=== PATIENT | female | born 1980 | race Caucasian/White ===

== ENCOUNTER → 2020-03-15 | Outpatient (CLI) | payer BC ==
--- NOTE | 2020-03-15 14:47 | MM ---
Reason for exam: screening (asymptomatic). Baseline mammogram. History: Took hormonal contraceptives for 9 years beginning at age 16. Physical Findings: Nurse did not find any significant physical abnormalities on exam. MG 3D Screening Mammo W/Cad Bilateral CC and MLO view(s) were taken. The breast tissue is extremely dense which could obscure a lesion on mammography. Finding: There are indeterminate grouped/clustered calcifications in the upper outer quadrant, anterior middle position of the right breast. These results were verbally communicated with the patient and result sheet given to the patient on 03/15/20. ASSESSMENT: Incomplete: need additional imaging evaluation, BI-RAD 0 RECOMMENDATION: Special view mammogram of the right breast.
--- NOTE | 2020-03-15 14:50 | MM ---
Reason for exam: additional evaluation requested from abnormal screening. History: Took hormonal contraceptives for 9 years beginning at age 16. Physical Findings: Breast exam preformed at baseline screening. MG Work Up Mamm w CAD RT CC with magnification, LM with magnification, and LM view(s) were taken of the right breast. The breast tissue is heterogeneously dense. This may lower the sensitivity of mammography. Finding: There are intermediate concern, suspicious coarse heterogeneous, grouped/clustered calcifications in the anterior, central position of the right breast, do not layer on lateral view. These results were verbally communicated with the patient and result sheet given to the patient on 03/15/20. ASSESSMENT: Suspicious, BI-RAD 4 RECOMMENDATION: Stereotactic core biopsy of the right breast. Called Dr. Reyes's office with mammographic findings and has scheduled an appointment for the patient for 03/17/20 at 9:[address] Mott. Biopsy scheduled for 04/01/20 at 8:00. PRELIMINARY REPORT CALLED AND FAXED TO DR. MOTT ON 03/15/20.
== END | disposition home or self-care (01) ==
LOC: RADMAMWWP 12:35
PROVIDERS: ATTEND Family Medicine
DX: Z12.31 Encounter for screening mammogram for malignant neoplasm of breast (principal); R92.8 Other abnormal and inconclusive findings on diagnostic imaging of breast
CPT/HCPCS: 77063; 77065; 77067

== ENCOUNTER → 2020-03-17 | Outpatient (CLI) | payer BC ==
[2020-03-17 10:06] VITALS: BP 124/84; PULSE 74; RESP 18; TEMP 98
--- NOTE | 2020-03-17 10:24 | P.GSHP ---
History of Present Illness H&P Date: 03/17/20 Chief Complaint: abnormal right breast mammogram Verena is a 39-year-old white female who was seen in consultation for Dr. Rosenda Reyes regarding a mammographic abnormality in her right breast. She had her first [place] [id number] which revealed some calcifications of concern in the right breast after which a diagnostic mammogram was performed the calcifications were persistent in the stereotactic core biopsy was recommended. She does not feel any masses lumps or nodules in her breast. She does not complain of any pain in the breast. She is not complaining of any abnormal nipple discharge. She has no history of any recent trauma or infection in the breast. Caffeine: 2 cups of tea/day, stopped drinking coffee 6 months ago Nicotine: Stopped smoking 3 years ago used to smoke a pack a day for 3 years, she is not exposed to secondhand smoke Theophylline: Occasionally Hormones: None Family history: paternal aunt: ovarian cancer Hormonal history: Menarche: 8 , breast fed: yes, age at 25 periods regular, started 1 week ago BCP: 9 years, than IUD and a then a tubal hormones: none Surgical history: 1. Tubal ligation 2. D&C Medical history: none Social history: Smoke: Negative Alcohol: Negative Drugs: Negative - Constitutional Constitutional: Denies chills, Denies fever - EENT Eyes: denies blurred vision, denies pain Ears: deny: decreased hearing, tinnitus Ears, nose, mouth and throat: Denies headache, Denies sore throat - Breasts Breasts: bilateral: as per HPI - Cardiovascular Cardiovascular: Denies chest pain, Denies shortness of breath - Respiratory Respiratory: Denies cough, Denies 7 - Gastrointestinal Gastrointestinal: Denies abdominal pain, Denies diarrhea, Denies nausea, Denies vomiting - Genitourinary (Female) Genitourinary: Denies dysuria, Denies hematuria - Menstruation Menstruation: Reports period normal - Musculoskeletal Musculoskeletal: Denies myalgias - Integumentary Integumentary: Denies pruritus, Denies rash - Neurological Neurological: Denies numbness, Denies weakness - Psychiatric Psychiatric: Denies anxiety, Denies depression - Endocrine Endocrine: Denies fatigue, Denies weight change - Hematologic/Lymphatic Comment: none - Allergic/Immunologic Allergic/Immunologic: Reports seasonal allergies Past Medical History History of Any Multi-Drug Resistant Organisms: None Reported Smoking Status: Former smoker Medications and Allergies Home Medications Medication Instructions Recorded Confirmed Type Ascorbic Acid [Vitamin C] 500 mg PO DAILY 03/17/20 03/17/20 History Biotin 5,000 mcg PO DAILY 03/17/20 03/17/20 History Multivit with Calcium,Iron,Min 1 tab PO DAILY 03/17/20 03/17/20 History [Women's Multivitamin] Allergies Allergy/AdvReac Type Severity Reaction Status Date / Time No Known Allergies Allergy Unverified 03/17/20 10:01 Surgical - Exam Vital Signs Temp Pulse Resp BP Pulse Ox 98.0 F 74 18 124/84 98 03/17/20 10:03 03/17/20 10:03 03/17/20 10:03 03/17/20 10:03 03/17/20 10:03 BMI 26.8 - General well developed, well nourished, no distress - Eyes normal ocular movement - ENT no hearing loss, no congestion - Neck no masses, trachea midline - Respiratory normal respiratory effort, clear to auscultation - Cardiovascular Rhythm: regular Heart Sounds: normal: S1, S2 - Abdomen Abdomen: soft, non tender, no guarding, no rigid, no rebound - Integumentary normal turgor - Neurologic no disoriented, no combative - Musculoskeletal normal gait, normal posture - Psychiatric oriented to time, oriented to person, oriented to place, speech is normal, memory intact breast: BRA 36B inspection: Questionable prominent glands and the areolar bilaterally greater on the right than the left, ptosis grade 2 bilateral Palpation: Right breast: Dense fibroglandular tissue no dominant masses or nodules of concern fibrocystic changes Right axilla: No adenopathy of concern Left breast: Multiple positional exam dense fibroglandular tissue no dominant masses or nodules of concern Left axilla: No adenopathy of concern Results Mammogram results reviewed Assessment and Plan Assessment: Impression: 1. Abnormal right breast mammogram 2. Dense fibrocystic breast tissue bilaterally 3. Skin changes bilateral areolar 4. Family history ovarian cancer Plan: 1. Stereotactic core biopsy right breast abnormality 2. Patient has appointment with dermatology to evaluate the areolar skin changes Of stereotactic core biopsy procedure was discussed with the patient. Risk and benefits were discussed. Alternative options such as watchful waiting or resection in the operating room were discussed but not recommended. The patient understands and wishes to proceed. This is scheduled for the near future. Cc: Dr. Reyes, DR. De Luna encounter 40 minutes, > 50% of time spent in planning and counselling
== END | disposition home or self-care (01) ==
LOC: WWCWWP 09:55
PROVIDERS: ATTEND Surgery
DX: Z53.9 Procedure and treatment not carried out, unspecified reason (principal)

== ENCOUNTER → 2020-04-07 | Day surgery (SDC) | payer BC ==
[2020-04-07 07:19] VITALS: RESP 16
--- NOTE | 2020-04-07 08:38 | P.PCN ---
Date of Procedure: 04/07/20 Preoperative Diagnosis: Microcalcifications of concern right breast Postoperative Diagnosis: Same Procedure(s) Performed: Stereotactic core biopsy right breast Anesthesia: local Surgeon: Angelica Mott Pathology: other (breast tissue) Disposition: same day Indications for Procedure: Heterogeneous group/clustered calcifications anterior to central position of the right breast Operative Findings: Calcifications noted in specimen Description of Procedure: The patient is a 39-year-old white female who on a baseline screening mammogram was noted to have an area of microcalcifications of concern in the anterior central position of the right breast. They did not layer on the lateral view. Risks and benefits of stereotactic core biopsy were discussed with the patient and it was recommended she undergo a sterile tactic core biopsy. She understood and wished to proceed. The patient was taken to the stereotactic core biopsy room and positioned on the lo-rad table. Generation Engineer film was obtained in the area of concern was identified. A lateral to medial approach was utilized. The area of concern was targeted. The breast was prepped using Betadine. 20 mL of 1% lidocaine was used to anesthetize the area of concern. An 18-gauge vacuum-assisted core rotating biopsy needle was driven to the correct coordinates. The needle was fired. Post fire films revealed the needle be in the correct location. 12 core biopsies were obtained. The area was lavaged until the return was clear. The specimen was radiographed and the calcifications of concern were identified in the specimen. A secure aldo marker was placed. The patient tolerated the procedure in stable condition. The specimen was sent to pathology. The patient will follow with Dr. Olsen next week.
[2020-04-07 10:32] VITALS: BP 130/74; PULSE 64; TEMP 97.9
--- NOTE | 2020-04-07 13:53 | MM ---
Stereotactic Mammotome core biopsy right breast. HISTORY: Microcalcifications The Microcalcifications in question within the right breast were targeted by the undersigned. Proced ure was performed by the undersigned. Informed consent was obtained and all of the patients questions were answered. The standard sterile technique was utilized and appropriate local anesthesia was obt ained with 1% lidocaine. Mammotome probe was advanced and multiple core samples were obtained and se nt to pathology for interpretation. Microclip marker was deployed at the site of biopsy. Post proce dural mammogram demonstrates appropriate deployment of radiopaque clip marker. The patient tolerated the procedure well and left the department in stable condition. Pathology results are pending. IMPRESSION: Successful stereotactic core biopsy right breast with pathology results pending.
== END ==
LOC: RADMAMWWP 07:01
PROVIDERS: ATTEND Surgery
DX: D05.11 Intraductal carcinoma in situ of right breast (principal); N60.11 Diffuse cystic mastopathy of right breast; D24.1 Benign neoplasm of right breast; N62 Hypertrophy of breast
CPT/HCPCS: 88305; 88342; 88341; 19081; A4648; J2001

== ENCOUNTER → 2020-04-15 | Outpatient (CLI) | payer BC ==
[2020-04-15 13:30] VITALS: BP 117/80; PULSE 87; RESP 16; TEMP 97.9
--- NOTE | 2020-04-15 13:57 | P.PN ---
Subjective Progress Note Date: 04/15/20 Principal diagnosis: Stereotactic core biopsy results right breast Verena is a 39-year-old white female who was seen in consultation [place] [id number]. The patient had her first screening mammogram [place] [id number] which revealed some calcifications of concern in the right breast, a diagnostic mammogram was performed and stereotactic core biopsy was recommended. The location of the calcifications were in the anterior central port portion of the breast. Pathology revealed ductal carcinoma in situ. The patient was tolerated the procedure without difficulty. Family history: Paternal aunt: Ovarian cancer Hormonal history: Menarche: 8 , press-fit: Yes, age of first 25 Period is regular Postoperative control pills colon 9 years than IUD and then a tubal ligation Hormones: Negative Surgical history: 1. Tubal ligation 2. D&C Medical History: none Social history: Smoke: Negative Alcohol: Negative Drugs: Negative Review of systems: HEENT: Negative Lungs: Negative GI: Negative Cardiac: Negative : Negative Menstrual periods normal Musculoskeletal: Negative Integument: Negative Neurologic: Negative Psychiatric: Negative Endocrine: Negative Hematologic: Negative ALLERGY: Seasonal ALLERGIES Objective - Vital Signs Vital signs: Intake & Output 04/14/20 04/15/20 04/15/20 18:59 06:59 18:59 Weight 63.503 kg - Exam BMI 26.5 - Constitutional General appearance: Present: average body habitus - EENT Eyes: Present: EOMI ENT: Present: hearing grossly normal - Neck Neck: Present: normal ROM - Respiratory Respiratory: bilateral: CTA - Cardiovascular Rhythm: regular Heart sounds: normal: S1, S2 - Gastrointestinal General gastrointestinal: Present: soft - Integumentary Integumentary: Present: normal turgor - Musculoskeletal Musculoskeletal: Present: gait normal - Psychiatric Psychiatric: Present: A&O x's 3, appropriate affect, intact judgment & insight - Additional findings Additional findings: Breast exam: Bra 34B Inspection: Grade 1/2 ptosis [place] [id number] no dominant masses or nodules of concern in either breast, no adenopathy of concern in either axilla Biopsy site clean and dry no evidence of infection or hematoma Assessment and Plan Assessment: Patient's x-ray was again reviewed with radiology the area of concern is approximately 4 mm in size Impression: 1. Very small focus isolated of DCIS in the right breast anterior central area Plan: 1. Needle localization lumpectomy right breast, possible onco-plastic tissue transfer, sentinel node biopsy, possible axillary node dissection 2. genetic testing 3. present at tumor board 4. meet radiation oncology Risks and benefits of needle localization lumpectomy were discussed with the patient. She was given the option of lumpectomy versus mastectomy and would like to proceed with a lumpectomy. Additionally we have talked about genetic testing if it were to come back positive she may change her mind to a more aggressive surgical approach. We have also discussed sentinel node biopsy for ductal carcinoma in situ, and she would prefer to have this done at the initial surgery although she understands that this a low risk patient would have any spread. CC: DR. Reyes encounter 40 minutes, > 50% of time in planning nad counselling
== END | disposition home or self-care (01) ==
LOC: WWCWWP 13:21
PROVIDERS: ATTEND Surgery
DX: Z53.9 Procedure and treatment not carried out, unspecified reason (principal)

== ENCOUNTER → 2020-05-26 | Outpatient (CLI) | payer BC ==
[2020-05-26 15:03] VITALS: BP 125/85; PULSE 89; RESP 18; TEMP 98
--- NOTE | 2020-05-26 15:36 | P.PN ---
Subjective Progress Note Date: 05/26/20 Principal diagnosis: DCIS right breast Verena is a 39-year-old white female who was seen in consultation for Dr. Rosenda Reyes on . The patient had her first screening mammogram performed on which revealed some calcifications of concern in the right breast, a diagnostic mammogram was performed and stereotactic core biopsy was recommended. The location of the calcifications were in the anterior central portion of the breast. Pathology revealed ductal carcinoma in situ. The patient tolerated the procedure without difficulty. Family history: Paternal aunt: Ovarian cancer Hormonal history: Menarche: 8 , press-fit: Yes, age of first 25 Period is regular control pills:9 years than IUD and then a tubal ligation Hormones: Negative Surgical history: 1. Tubal ligation 2. D&C Medical History: none Social history: Smoke: Negative Alcohol: Negative Drugs: Negative Review of systems: HEENT: Negative Lungs: Negative GI: Negative Cardiac: Negative : Negative Menstrual periods normal Musculoskeletal: Negative Integument: Negative Neurologic: Negative Psychiatric: Negative Endocrine: Negative Hematologic: Negative ALLERGY: Seasonal ALLERGIES Objective - Vital Signs Vital signs: Vital Signs Temp 98.0 F 05/26/20 14:59 Pulse 89 05/26/20 14:59 Resp 18 05/26/20 14:59 BP 125/85 05/26/20 14:59 Pulse Ox 99 05/26/20 14:59 Intake & Output 05/25/20 05/26/20 05/26/20 18:59 06:59 18:59 Weight 65.317 kg - Exam BMI 26.3 - Constitutional General appearance: Present: average body habitus - EENT Eyes: Present: EOMI ENT: Present: hearing grossly normal - Neck Neck: Present: normal ROM - Respiratory Respiratory: bilateral: CTA - Cardiovascular Rhythm: regular Heart sounds: normal: S1, S2 - Gastrointestinal General gastrointestinal: Present: normal bowel sounds, soft - Integumentary Integumentary: Present: normal turgor - Musculoskeletal Musculoskeletal: Present: gait normal - Psychiatric Psychiatric: Present: A&O x's 3, appropriate affect, intact judgment & insight - Additional findings Additional findings: breast exam: BRA: 34B inspection: grade 1/2 ptosis bilateral palpation: no dominate masses or nodules of concern in either breast no axillary adenopathy of concern bilateral Assessment and Plan Assessment: Impression: 1. very small focus of DCIS right breast Plan: 1. Needle localization lumpectomy right breast, possible oncoplastic tissue transfer, sentinel node biopsy possible axillary node dissection; most likely to be done via donut mastopexy incision. I have discussed this with the patient and drawn the outlined for her. 2. genetic testing done on verbal report negative Risk and benefits of the procedure were discussed with the patient. She wishes to proceed with lumpectomy. We discussed mastectomy plus or minus reconstruction she would prefer to avoid this if possible. She understands she will get radiation therapy after the procedure. Risks include but are not limited to bleeding, infection, reaction to the anesthetic. She also understands that if her margins were to be positive is possible she would have to have further resection. Discussed by a very small focus of DCIS with talked about the possibility of a small focus of invasion and she has requested that a sentinel node biopsy be performed. We have also discussed that we may not find any additional tumor on resection. CC: DR. Reyes encounter 20 minutes, > 50% of tiem in planning and counselling
== END | disposition home or self-care (01) ==
LOC: WWCWWP 14:40
PROVIDERS: ATTEND Surgery
DX: Z53.9 Procedure and treatment not carried out, unspecified reason (principal)

== ENCOUNTER 2020-05-31 07:07 | Day surgery (SDC) | payer BC ==
[2020-05-30 08:51] VITALS: BMI 25.2
[~2020-05-31 07:07] MED LIST: DEXAMETHASONE SOD PHOSPHATE 4 MG/ML 1 ML VIAL IV ONE; HEPARIN SODIUM,PORCINE 5,000 UNIT/ML 1 ML VIAL SQ ONE; LACTATED RINGERS 1,000 ML IV SCH; MIDAZOLAM 2 MG/2 ML VIAL IV PRN; ONDANSETRON 4 MG/2 ML VIAL IVP ONE; Pre Op ABX Message 1 EACH MISC MISCELLANE ONE; SCOPOLAMINE 1.5MG/72HR PATCH TRANSDERM ONE
[2020-05-31] MEDS ORDERED: LIDOCAINE 1% (10MG/ML) FOR IV START INTRADERMA ONE (07:55)
[2020-05-31] MEDS ORDERED: ALPRAZolam 0.5 MG TAB ONE (08:17)
[2020-05-31] MEDS ORDERED: ALPRAZolam 0.5 MG TAB PO ONE (08:18)
[2020-05-31] MEDS ORDERED: LIDOCAINE 1% INJ 10MG/ML (20 ML MDV) SQ ONE (09:08)
--- NOTE | 2020-05-31 10:27 | P.PN ---
Progress Note - Text Progress Note Date: 05/31/20 I had another conversation with the patient regarding sentinel node biopsy. The chance of this have an invasive component is felt to be very small. I've discussed with her that there may not even be any residual ductal carcinoma in situ. After discussion she has agreed to forego the sentinel node biopsy. This will not be performed today. She understands that although an invasive component is possible and if found it may be recommended that she undergo a sentinel node biopsy which would necessitate additional surgery that the risk of this is very small.
[2020-05-31] MEDS ORDERED: PHENYLEPHRINE-0.9% NACL SYG 1 MG/10 ML SYRINGE ONE (10:45)
[2020-05-31] MEDS ORDERED: MIDAZOLAM 2 MG/2 ML VIAL ONE (10:45)
[2020-05-31] MEDS ORDERED: fentaNYL (PF) 50 MCG/ML 2 ML AMP ONE (10:45)
[2020-05-31] MEDS ORDERED: KETOROLAC 15 MG/ML 1 ML VIAL ONE (10:45)
[2020-05-31] MEDS ORDERED: LIDOCAINE 1% INJ 10MG/ML (20 ML MDV) ONE (10:45)
[2020-05-31] MEDS ORDERED: PROPOFOL 10 MG/ML 20 ML VIAL IV ONE (10:45)
--- NOTE | 2020-05-31 12:31 | P.OP ---
Date of Procedure: 05/31/20 Preoperative Diagnosis: Right breast ductal carcinoma in situ Postoperative Diagnosis: Same Procedure(s) Performed: Right breast needle localization partial mastectomy, oncho-plastic tissue transfer, doughnut mastopexy Anesthesia: JANNET Surgeon: Angelica Mott Estimated Blood Loss (ml): 10 IV fluids (ml): 400 Pathology: other (Breast tissue) Condition: stable Disposition: same day Indications for Procedure: Ductal carcinoma in situ on core biopsy Operative Findings: Dense breast tissue Description of Procedure: Indication: Ductal carcinoma in situ mid lateral aspect of the right breast on core biopsy Procedure: Needle localization partial mastectomy onco-plastic tissue transfer 43 cm Donut mastopexy Procedure: The patient is a 39-year-old white female diagnosed with ductal carcinoma in situ on core biopsy. Patient was recommended to undergo a partial mastectomy. She wished to have this done via an onco-palastic procedure if possible. After localization of the area of concern in the right breast the patient was brought to the operating room. Following induction of anesthesia the right breast was prepped and draped in a sterile fashion. Markings for a dounut mastopexy were placed. The [place] was approximately half a centimeter outside of the [place] around the areolar. The skin was de-epithelialized. The breast tissue was entered and the lateral aspect of the donut. Dissection was performed down to the needle. Surrounding tissue was excised. The cavity excised was approximately 5 x 2 cm or 10 cm. Following this the specimen was painted for orientation. Radiograph revealed that the area of concern had been removed. Titanium clips were placed, 2 superior and one lateral. The superior pillar of tissue was mobilized 6 cm x 3 cm for a total of 18 cm. The inferior pillar of tissue was mobilized 5 cm x 3 cm for a total of 15 cm. Total area mobalized was 43 cm of tissue. A second incision was made on the pectoralis muscle for mobilization of the superior and inferior pillars of tissue. These pedicles were brought together using 3-0 Vicryl suture to close the defect. Following this the donut mastopexy incision was closed. A 4-0 Gor e-Syd wagon wheel suture was placed. This was followed by a 4-0 Monocryl subcuticular suture. 4-0 nylon skin suture was then placed. The patient tolerated the procedure in stable condition. All instrument and sponge counts were correct at the end of the case.
--- NOTE | 2020-05-31 12:32 | P.DS ---
Providers Attending physician: Angelica Mott Primary care physician: Guicho Reyes Plan - Discharge Summary Discharge Rx Participant: Yes New Discharge Prescriptions: No Action Multivit with Calcium,Iron,Min [Women's Multivitamin] 1 tab PO QAM Biotin 5,000 mcg PO QAM Ascorbic Acid [Vitamin C] 500 mg PO QAM Cholecalciferol [Vitamin D3 (25 Mcg = 1000 Iu)] 1,000 unit PO QAM Discharge Medication List Ascorbic Acid [Vitamin C] 500 mg PO QAM 03/17/20 [History] Biotin 5,000 mcg PO QAM 03/17/20 [History] Multivit with Calcium,Iron,Min [Women's Multivitamin] 1 tab PO QAM 03/17/20 [History] Cholecalciferol [Vitamin D3 (25 Mcg = 1000 Iu)] 1,000 unit PO QAM 03/24/20 [History] Follow up Appointment(s)/Referral(s): Angelica Mott MD [STAFF PHYSICIAN] - 1 Week Patient Instructions/Handouts: *Surgery [facility] - Scopalamine Patch Instructions Activity/Diet/Wound Care/Special Instructions: do not drive for 24 hours after discharge do not drive if taking narcotic pain medicine may shower after 48 hours wear bra at all times Discharge Disposition: HOME SELF-CARE
[2020-05-31 12:38] VITALS: TEMP 97.2
[2020-05-31] MEDS: HYDROmorphone 0.5 MG/0.5 ML SYRINGE IVP PRN ×2 (13:06→13:15)
[2020-05-31 13:33] VITALS: RESP 18
[2020-05-31 13:52] VITALS: BP 124/66; PULSE 74
--- NOTE | 2020-05-31 16:28 | MM ---
EXAMINATION TYPE: MG pre op needle loc RT, MG surgical specimen RT DATE OF EXAM: 05/31/2020 COMPARISON: 03/15/2020 and 04/07/2020 CLINICAL HISTORY: 39 year-old female with biopsy-proven DCIS referred for needle localization and excision TECHNIQUE: Needle localization with wire placement and surgical excision of area of concern in the 9:00 right breast. FINDINGS: The procedure of needle localization with wire placement and than surgical excision was explained to the patient. Benefits, alternatives, and risks were discussed. An informed consent was then obtained. The shortest pathway for procedure was chosen. Shortest pathway was a lateral approach. The overlying skin was prepped and draped in usual sterile fashion. Lidocaine was used as anesthetic into the skin and subcutaneous tissue up to the level of area of concern. A 7 cm Kopan's needle was used. It was placed via a lateral approach under mammographic guidance. Subsequent 90 degrees mammogram show the needle to be in satisfactory position relative to the targeted area. At this point, wire was placed and the needle was withdrawn. The wire was fixed to patient's skin. Images were marked for surgeon. The patient tolerated the procedure well without any immediate complication. The patient was kept in the radiology department for short stay after the procedure and then taken to surgery for surgical excision. Targeted clip and wire are identified in specimen mammogram. The patient was kept in hospital for short stay after the procedure and then discharged home in stable condition. IMPRESSION: Successful, uncomplicated needle localization with wire placement and surgical excision of the site of biopsy-proven DCIS/ADH within the 9:00 right breast, full pathology results to follow. Pathology Results: High Risk A. RIGHT BREAST, LUMPECTOMY: Isolated focus of atypical ductal hyperplasia (ADH) with calcifications in a background of fibrocystic changes and previous biopsy site. No residual DCIS is identified. Margins negative for ADH. B. DE-EPITHELIALIZED TISSUE, RIGHT BREAST: Benign skin without histopathologic changes. Recommendation Follow up mammogram of the right breast in 6 months. MATT
== END 2020-05-31 14:39 | disposition home or self-care (01) ==
LOC: OR 07:07
PROVIDERS: ATTEND Surgery
DX: D05.11 Intraductal carcinoma in situ of right breast (principal); N60.11 Diffuse cystic mastopathy of right breast; N60.91 Unspecified benign mammary dysplasia of right breast; Z98.51 Tubal ligation status; Z80.41 Family history of malignant neoplasm of ovary
CPT/HCPCS: 81025; 88305; 88307; 76098; 19281; 19301; J2250; J1644; J1100; J2405; J2001; J3010; J1885; J2370; J2704; J1170

== ENCOUNTER → 2020-06-09 | Outpatient (CLI) | payer BC ==
[2020-06-09 16:33] VITALS: BP 126/79; PULSE 70; RESP 16; TEMP 98.1
--- NOTE | 2020-06-09 16:44 | P.PN ---
Progress Note - Text Progress Note Date: 06/09/20 Verena is a 39 year old female status post right breast lumpectomy on . This revealed an isolated focus of atypical ductal hyperplasia with calcifications and the background of fibrocystic change and previous biopsy site. No residual DCIS was identified. Margins were negative for ADH. Patient has done well postoperative. Physical exam: Lungs: Clear Heart: Regular rate and rhythm Incision: Clean and dry Impression: DCIS completely excised Plan: 1. Medical oncology 2. Appointment radiation oncology 2. Removal of sutures 4. Follow-up in 3 months CC: Dr. Reyes
== END | disposition home or self-care (01) ==
LOC: WWCWWP 16:04
PROVIDERS: ATTEND Surgery
DX: Z53.9 Procedure and treatment not carried out, unspecified reason (principal)

== ENCOUNTER → 2020-09-09 | Outpatient (CLI) | payer BC ==
[2020-09-09 15:32] VITALS: BP 118/84; PULSE 72; RESP 18; TEMP 98.4
--- NOTE | 2020-09-09 16:00 | P.PN ---
Subjective Progress Note Date: 09/09/20 Principal diagnosis: DCIS right breast DCIS right breast Verena is a 39-year-old white female who was seen in consultation for Dr. Rosenda Reyes on . The patient had her first screening mammogram performed on which revealed some calcifications of concern in the right breast, a diagnostic mammogram was performed and stereotactic core biopsy was recommended. The location of the calcifications were in the anterior central portion of the breast. Pathology revealed ductal carcinoma in situ. The patient tolerated the procedure without difficulty. She underwent a right breast lumpectomy on . This revealed an isolated focus of atypical ductal hyperplasia with calcifications in a background of fibrocystic change and previous biopsy site. No residual DCIS was identified. Margins were negative for atypical ductal hyperplasia. She has not noted any lumps masses or nodules for which she is concerned. She is on tamoxifen at this time she did not have any radiation therapy. Her last bilateral mammogram was March 15, 2020. She did have genetic testing performed which was negative. Family history: Paternal aunt: Ovarian cancer Hormonal history: Menarche: 8 , press-fit: Yes, age of first 25 Period is regular control pills:9 years than IUD and then a tubal ligation Hormones: Negative Surgical history: 1. Tubal ligation 2. D&C 3. right breast lumpectomy Medical History: none Social history: Smoke: Negative Alcohol: Negative Drugs: Negative Review of systems: HEENT: Negative Lungs: Negative GI: Negative Cardiac: Negative : Negative Menstrual periods normal Musculoskeletal: Negative Integument: Negative Neurologic: Negative Psychiatric: Negative Endocrine: Negative Hematologic: Negative ALLERGY: Seasonal ALLERGIES Objective - Vital Signs Vital signs: Vital Signs Temp 98.4 F 09/09/20 15:30 Pulse 72 09/09/20 15:30 Resp 18 09/09/20 15:30 BP 118/84 09/09/20 15:30 Pulse Ox 98 09/09/20 15:30 Intake & Output 09/08/20 09/09/20 09/09/20 18:59 06:59 18:59 Weight 65.771 kg - Exam BMI 25.7 - Constitutional General appearance: Present: average body habitus - EENT Eyes: Present: EOMI ENT: Present: hearing grossly normal - Neck Neck: Present: normal ROM - Respiratory Respiratory: bilateral: CTA - Cardiovascular Rhythm: regular Heart sounds: normal: S1, S2 - Gastrointestinal General gastrointestinal: Present: normal bowel sounds, soft - Integumentary Integumentary: Present: normal turgor - Musculoskeletal Musculoskeletal: Present: gait normal - Psychiatric Psychiatric: Present: A&O x's 3, appropriate affect, intact judgment & insight - Additional findings Additional findings: breast exam: BRA: 36B inspection: Well-healed scar right breast from lumpectomy Palpation: Right breast: Multi-positional exam no dominant masses or nodules of concern Right axilla: No adenopathy of concern Left breast: Multiple positional exam no dominant masses or nodules of concern Left axilla: No adenopathy of concern Assessment and Plan Assessment: Impression: 1. DCIS right breast no evidence of recurrence 2. Patient on tamoxifen Plan: 1. Right breast mammogram November with follow-up appointment after this 2. Bilateral mammogram February 3. Continue tamoxifen 4. Call sooner if any questions of concern Cc: Dr. Reyes Encounter 15 minutes time spent in reviewing medical records, physical examination, and counseling.
== END | disposition home or self-care (01) ==
LOC: WWCWWP 15:22
PROVIDERS: ATTEND Surgery
DX: Z53.9 Procedure and treatment not carried out, unspecified reason (principal)

== ENCOUNTER → 2020-12-09 | Outpatient (CLI) | payer BC ==
--- NOTE | 2020-12-12 10:08 | MM ---
Reason for exam: follow-up at short interval from prior study. Last mammogram was performed 9 months ago. History: Patient has history of breast cancer at age 39 and has history of high-risk lesion on a previous biopsy at age 39. High risk MG pre op needle loc RT of the right breast, May 31, 2020. Lumpectomy of the right breast, May 31, 2020. Malignant MG stereo VAD BX RT of the right breast, April 07, 2020. Took hormonal contraceptives for 9 years beginning at age 16. Taking other hormone for 2 months. Physical Findings: Nurse did not find any significant physical abnormalities on exam. MG 3D Diag Mammo W/Cad RT CC and MLO view(s) were taken of the right breast. Prior study comparison: March 15, 2020, right breast MG work up mamm w CAD RT. March 15, 2020, bilateral MG 3d screening mammo w/cad. The breast tissue is heterogeneously dense. This may lower the sensitivity of mammography. Post operative changes right breast. These results were verbally communicated with the patient and result sheet given to the patient on 12/09/20. ASSESSMENT: Benign, BI-RAD 2 RECOMMENDATION: Follow-up diagnostic mammogram of both breasts in 3 months. Back on schedule for February 2021.
== END | disposition home or self-care (01) ==
LOC: RADMAMWWP 14:18
PROVIDERS: ATTEND Surgery
DX: R92.8 Other abnormal and inconclusive findings on diagnostic imaging of breast (principal); Z85.3 Personal history of malignant neoplasm of breast
CPT/HCPCS: 77061; 77065

== ENCOUNTER → 2020-12-16 | Outpatient (CLI) | payer BC ==
[2020-12-16 14:51] VITALS: BP 117/80; PULSE 63; RESP 16; TEMP 98.1
--- NOTE | 2020-12-16 15:05 | P.PN ---
Subjective Progress Note Date: 12/16/20 Principal diagnosis: DCIS right breast Verena is a 39-year-old white female who was seen in consultation for Dr. Rosenda Reyes on . The patient had her first screening mammogram performed on which revealed some calcifications of concern in the right breast, a diagnostic mammogram was performed and stereotactic core biopsy was recommended. The location of the calcifications were in the anterior central portion of the breast. Pathology revealed ductal carcinoma in situ. The patient tolerated the procedure without difficulty. She underwent a right breast lumpectomy on . This revealed an isolated focus of atypical ductal hyperplasia with calcifications in a background of fibrocystic change and previous biopsy site. No residual DCIS was identified. Margins were negative for atypical ductal hyperplasia. She has not noted any lumps masses or nodules for which she is concerned. She did not have any radiation therapy. Her last bilateral mammogram was March 15, 2020. She had a right breast mammogram [place] [id number] which was benign BIRADS 2. She is not complaining of any lumps masses or nodules in her breast. She is continuing to take the tamoxifen. She does have hot flashes and has irregularity of her menstrual cycle. She did have genetic testing performed which was negative. Family history: Paternal aunt: Ovarian cancer Hormonal history: Menarche: 8 , press-fit: Yes, age of first 25 Period is irregular control pills:9 years than IUD and then a tubal ligation Hormones: Negative Surgical history: 1. Tubal ligation 2. D&C 3. right breast lumpectomy Medical History: none Social history: Smoke: Negative Alcohol: Negative Drugs: Negative Review of systems: HEENT: Negative Lungs: Negative GI: Negative Cardiac: Negative : Negative Menstrual periods normal Musculoskeletal: Negative Integument: Negative Neurologic: Negative Psychiatric: Negative Endocrine: Negative Hematologic: Negative ALLERGY: Seasonal ALLERGIES Objective - Vital Signs Vital signs: Vital Signs Temp 98.1 F 12/16/20 14:48 Pulse 63 12/16/20 14:48 Resp 16 12/16/20 14:48 BP 117/80 12/16/20 14:48 Pulse Ox 97 12/16/20 14:48 Intake & Output 12/15/20 12/16/20 12/16/20 18:59 06:59 18:59 Weight 68.039 kg - Exam BMI 26.2 - Constitutional General appearance: Present: average body habitus, cooperative - EENT Eyes: Present: EOMI ENT: Present: hearing grossly normal - Neck Neck: Present: normal ROM - Respiratory Respiratory: bilateral: CTA - Cardiovascular Rhythm: regular Heart sounds: normal: S1, S2 - Integumentary Integumentary: Present: normal turgor - Musculoskeletal Musculoskeletal: Present: gait normal - Psychiatric Psychiatric: Present: A&O x's 3, appropriate affect, intact judgment & insight - Additional findings Additional findings: breast exam: BRA: 34B inspection: well healed scar right breast from prior surgery Palpation: Right breast: Multi-positional exam fibrocystic changes no dominant masses or nodules of concern Right axilla: No adenopathy of concern Left breast: Multiple positional exam fibrocystic changes or dominant masses or nodules of concern Left axilla: No adenopathy of concern Assessment and Plan Assessment: Impression: 1. Patient is status post right breast lumpectomy for ductal carcinoma in situ no evidence of recurrent disease 2. Patient remains on tamoxifen 3. Recent right breast mammogram benign BIRADS 2 Plan: 1. Patient has a left breast mammogram in 3 months follow-up after this is done 2. Most likely will do bilateral mammogram in 1 year back on schedule with mammograms together Cc: Dr. Reyes, Dr. De Luna
== END ==
LOC: WWCWWP 14:14
PROVIDERS: ATTEND Surgery
DX: Z08 Encounter for follow-up examination after completed treatment for malignant neoplasm (principal); Z85.3 Personal history of malignant neoplasm of breast; Z98.890 Other specified postprocedural states; Z79.810 Long term (current) use of selective estrogen receptor modulators (SERMs)

== ENCOUNTER → 2021-03-17 | Outpatient (CLI) | payer BC ==
--- NOTE | 2021-03-20 07:52 | MM ---
Reason for exam: follow-up at short interval from prior study. Last mammogram was performed 3 months ago. History: Patient has history of breast cancer at age 39 and has history of high-risk lesion on a previous biopsy at age 39. High risk MG pre op needle loc RT of the right breast, May 31, 2020. Lumpectomy of the right breast, May 31, 2020. Malignant MG stereo VAD BX RT of the right breast, April 07, 2020. Took hormonal contraceptives for 9 years beginning at age 16. Taking antineoplastic beginning at age 39. Physical Findings: Nurse did not find any significant physical abnormalities on exam. MG 3D Diag Mammo W/Cad BRENT Bilateral CC and MLO view(s) were taken. Prior study comparison: December 09, 2020, right breast MG 3d diag mammo w/cad RT. March 15, 2020, right breast MG work up mamm w CAD RT. The breast tissue is heterogeneously dense. This may lower the sensitivity of mammography. Finding: Architectural distortion in the upper outer quadrant of the right breast consistent with known post treatment changes. There is no discrete abnormality. These results were verbally communicated with the patient and result sheet given to the patient on 03/17/21. ASSESSMENT: Benign, BI-RAD 2 RECOMMENDATION: Follow-up diagnostic mammogram of both breasts in 1 year.
== END | disposition home or self-care (01) ==
LOC: RADMAMWWP 14:44
PROVIDERS: ATTEND Surgery
DX: R92.2 Inconclusive mammogram (principal); N64.89 Other specified disorders of breast; Z80.3 Family history of malignant neoplasm of breast
CPT/HCPCS: 77062; 77066

== ENCOUNTER → 2021-03-30 | Outpatient (CLI) | payer BC ==
[2021-03-30 12:55] VITALS: BP 101/70; PULSE 76; RESP 18; TEMP 98.6
--- NOTE | 2021-03-30 13:00 | P.PN ---
Subjective Progress Note Date: 03/30/21 Principal diagnosis: DCIS right breast Verena is a 40-year-old white female who [place] [id number]. The patient [place] [id number] which revealed some calcifications of concern in the right breast, a diagnostic mammogram was performed and stereotactic core biopsy was recommended. The location of the calcifications were in the anterior central portion of the breast. Pathology revealed ductal carcinoma in situ. The patient tolerated the procedure without difficulty. She underwent a right breast lumpectomy on . This revealed an isolated focus of atypical ductal hyperplasia with calcifications in a background of fibrocystic change and previous biopsy site. No residual DCIS was identified. Margins were negative for atypical ductal hyperplasia. She has not noted any lumps masses or nodules for which she is concerned. She did not have any radiation therapy. Her last bilateral mammogram was March 17. This was benign BIRADS 2. She is not complaining of any lumps masses or nodules in her breast. She is continuing to take the tamoxifen. She does have hot flashes and has irregularity of her menstrual cycle. She did have genetic testing performed which was negative. Family history: Paternal aunt: Ovarian cancer Hormonal history: Menarche: 8 , press-fit: Yes, age of first 25 Period is irregular control pills:9 years than IUD and then a tubal ligation Hormones: Negative Surgical history: 1. Tubal ligation 2. D&C 3. right breast lumpectomy Medical History: none Social history: Smoke: Negative Alcohol: Negative Drugs: Negative Review of systems: HEENT: Negative Lungs: Negative GI: Negative Cardiac: Negative : Negative Menstrual periods normal Musculoskeletal: Negative Integument: Negative Neurologic: Negative Psychiatric: Negative Endocrine: Negative Hematologic: Negative ALLERGY: Seasonal ALLERGIES Objective - Vital Signs Vital signs: Intake & Output 03/29/21 03/30/21 03/30/21 18:59 06:59 18:59 Weight 63.503 kg - Constitutional General appearance: Present: average body habitus - EENT Eyes: Present: EOMI ENT: Present: hearing grossly normal - Neck Neck: Present: normal ROM - Respiratory Respiratory: bilateral: CTA - Cardiovascular Heart sounds: normal: S1, S2 - Integumentary Integumentary: Present: normal turgor - Musculoskeletal Musculoskeletal: Present: gait normal - Psychiatric Psychiatric: Present: A&O x's 3, appropriate affect, intact judgment & insight - Additional findings Additional findings: Breast Exam: Bra: 34:B inspection: Well-healed scar right breast from prior surgery, bilateral grade 1/2 ptosis Palpation: Right breast: Multi-positional exam Fibroglandular tissue no dominant masses or nodules of concern, fibrocystic changes Right axilla: No adenopathy of concern Left breast: Multi-positional exam no dominant masses or nodules of concern fibrocystic changes Left axilla: No adenopathy of concern Assessment and Plan Assessment: Impression: 1. Patient status post right breast lumpectomy for DCIS no evidence of recurrent disease 2. Recent bilateral mammogram benign BIRADS 2 3. Fibrocystic breast changes 4. Patient is on tamoxifen Plan: 1. Continue to follow with medical oncology for tamoxifen 2. Follow-up. 6 months 3. Follow-up sooner if questions or concerns CC: Dr. Reyes
== END ==
LOC: WWCWWP 12:44
PROVIDERS: ATTEND Surgery
DX: N60.11 Diffuse cystic mastopathy of right breast (principal); N60.12 Diffuse cystic mastopathy of left breast; Z98.890 Other specified postprocedural states; Z79.810 Long term (current) use of selective estrogen receptor modulators (SERMs)

== ENCOUNTER → 2021-10-26 | Outpatient (CLI) | payer BC ==
[2021-10-26 08:45] VITALS: BP 130/84; PULSE 85; RESP 17
--- NOTE | 2021-10-26 09:31 | P.PN ---
Subjective Progress Note Date: 10/26/21 Principal diagnosis: right breast DCIS DCIS right breast Verena is a 41-year-old white female who was seen in consultation for Dr. Rosenda Reyes on . The patient had her first screening mammogram performed on which revealed some calcifications of concern in the right breast, a diagnostic mammogram was performed and stereotactic core biopsy was recommended. The location of the calcifications were in the anterior central portion of the breast. Pathology revealed ductal carcinoma in situ. The patient tolerated the procedure without difficulty. She underwent a right breast lumpectomy on . This revealed an isolated focus of atypical ductal hyperplasia with calcifications in a background of fibrocystic change and previous biopsy site. No residual DCIS was identified. Margins were negative for atypical ductal hyperplasia. She has not noted any lumps masses or nodules for which she is concerned. She did not have any radiation therapy. Her last bilateral mammogram was March 17, 2021. She is not complaining of any lumps masses or nodules in her breast. She is continuing to take the tamoxifen. She is having some hot flashes. She is having some irregularity of her menstrual cycle. Note from Dr. Leon reviewed from 09-25-21. She did have genetic testing performed which was negative. Family history: Paternal aunt: Ovarian cancer Hormonal history: Menarche: 8 , press-fit: Yes, age of first 25 Period is irregular control pills:9 years than IUD and then a tubal ligation Hormones: Negative Surgical history: 1. Tubal ligation 2. D&C 3. right breast lumpectomy Medical History: none Social history: Smoke: Negative Alcohol: Negative Drugs: Negative Review of systems: HEENT: Negative Lungs: Negative GI: Negative Cardiac: Negative : Negative Menstrual periods normal Musculoskeletal: Negative Integument: Negative Neurologic: Negative Psychiatric: Negative Endocrine: Negative Hematologic: Negative ALLERGY: Seasonal ALLERGIES Objective - Vital Signs Vital signs: Vital Signs Temp Pulse 85 10/26/21 08:41 Resp 17 10/26/21 08:41 BP 130/84 10/26/21 08:41 Pulse Ox 97 10/26/21 08:41 Intake & Output 10/25/21 10/26/21 10/26/21 18:59 06:59 18:59 Weight 61.235 kg - Exam BMI 24.7 - Constitutional General appearance: Present: cooperative - EENT Eyes: Present: EOMI ENT: Present: hearing grossly normal - Neck Neck: Present: normal ROM - Respiratory Respiratory: bilateral: CTA - Cardiovascular Rhythm: regular Heart sounds: normal: S1, S2 - Gastrointestinal General gastrointestinal: Present: soft - Integumentary Integumentary: Present: normal turgor - Musculoskeletal Musculoskeletal: Present: gait normal - Psychiatric Psychiatric: Present: A&O x's 3, appropriate affect, intact judgment & insight - Additional findings Additional findings: Breast Exam: BRA: 34B inspection: Bilateral grade 2 ptosis, well-healed scar right breast from prior surgery Palpation: Weight breasts: Multiple positional exam fibrocystic changes no dominant masses or nodules of concern Right axilla: No adenopathy of concern Left breast: Multi-positional exam fibrocystic changes no dominant masses or nodules of concern Left axilla: No adenopathy of concern Assessment and Plan Assessment: Impression: Right breast DCIS status post lumpectomy on tamoxifen Plan: Bilateral mammogram in February 2022 with physician exam at that time Continue tamoxifen Cc: Dr. Reyes
== END ==
LOC: WWCWWP 08:31
PROVIDERS: ATTEND Surgery
DX: D05.11 Intraductal carcinoma in situ of right breast (principal); Z98.890 Other specified postprocedural states

== ENCOUNTER → 2021-10-27 | Outpatient (CLI) | payer BC ==
--- NOTE | 2021-10-27 11:40 | US ---
EXAMINATION TYPE: US transvaginal DATE OF EXAM: 10/27/2021 COMPARISON: NONE CLINICAL HISTORY: R10.2 PELVIC AND PERINEAL PAIN. Left sided pelvic pain since this morning; hx tubal ligation; patient states her partner has had a vasectomy. TECHNIQUE: Transvaginal (TV). Date of LMP: 10/02/21 EXAM MEASUREMENTS: Uterus: 10.6 x 5.3 x 6.3 cm Endometrial Stripe: Anterior 0.2 cm Posterior 0.3 cm - Full measurement 0.9 cm Right Ovary: 2.5 x 2.6 x 2.7 cm Left Ovary: 5.2 x 2.3 x 2.7 cm 1. Uterus: Anteverted Probable fibroid right uterus 2.4 x 2.4 x 2.3 cm; probably fibroid uterine f undus 1.4 x 1.4 x 1.1 cm. Septated uterus is likely present. 2. Endometrium: Fluid within 3. Right Ovary: Appears wnl 4. Left Ovary: Complex area seen measuring 2.1 cm. Differential diagnosis could include involuting c yst. Correlation with beta-hCG is recommended, rule out ectopic . Follow-up examination is r ecommended. 5. Bilateral Adnexa: wnl 6. Posterior cul-de-sac: wnl IMPRESSION: 1. Complex cystlike structure on the left ovary, follow-up examination to document resolution is marshall mmended. Differential diagnosis is discussed above. 2. Uterine fibroids. 3. Septated uterus. 4. Fluid within the endometrial canal.
[2021-10-27 12:22] LABS: Basophils % (A) 0 %; Eosinophils % (A) 0 %; HCT 40.8 % (34.0-46.0); HGB 13.5 gm/dL (11.4-16.0); Lymphocytes # (A) 1.2 k/uL (1.0-4.8); Lymphocytes % (A) 11 %; MCH 30.4 pg (25.0-35.0); MCHC 33.1 g/dL (31.0-37.0); MCV 91.8 fL (80.0-100.0); Mean Platelet Volume 8.9; Monocytes # (A) 0.2 k/uL (0-1.0); Monocytes % (A) 2 %; Neutrophils # (A) 9.5 k/uL (1.3-7.7); Neutrophils % (A) 86 %; Platelet Count 206 k/uL (150-450); RBC 4.44 m/uL (3.80-5.40)
[2021-10-27 12:37] LABS: ALT 36 U/L (4-34); AST 29 U/L (14-36); African American GFR (CKD) >90 (>60 ml/min/1.73 sqM); Albumin 4.2 g/dL (3.5-5.0); Albumin/Globulin Ratio 1.6; Alkaline Phosphatase 55 U/L (38-126); Anion Gap 7 mmol/L; Blood Urea Nitrogen 10 mg/dL (7-17); Carbon Dioxide 23 mmol/L (22-30); Chloride 103 mmol/L (98-107); Globulin 2.7 g/dL; Glucose 105 mg/dL (74-99); Non-African American GFR(CKD) >90 (>60 ml/min/1.73 sqM); Potassium 4.1 mmol/L (3.5-5.1); Sodium 133 mmol/L (137-145); Total Bilirubin 0.5 mg/dL (0.2-1.3); Total Protein 6.9 g/dL (6.3-8.2)
[2021-10-27 12:53] LABS: HCG,Quantitative Serum <2.4 mIU/mL
[2021-10-27 13:50] LABS: Erythrocyte Sedimentation Rate 2 mm/hr (0-20)
== END | disposition home or self-care (01) ==
LOC: RADUSWWP 10:40
PROVIDERS: ATTEND Family Medicine
DX: D25.9 Leiomyoma of uterus, unspecified (principal); Q51.9 Congenital malformation of uterus and cervix, unspecified; R93.89 Abnormal findings on diagnostic imaging of other specified body structures
CPT/HCPCS: 76830; 80053; 84702; 85025; 85652

== ENCOUNTER → 2022-01-30 | Outpatient (CLI) | payer BC ==
--- NOTE | 2022-01-30 20:43 | US ---
EXAMINATION TYPE: US pelvis complete transvag DATE OF EXAM: 01/30/2022 COMPARISON: US October 27 2021 CLINICAL HISTORY: R10.2 PELVIC AND PERINEAL PAIN. Follow up to prior US TECHNIQUE: Transvaginal (TV) and Transabdominal (TA) . Transabdominal ultrasound imaging. Transvagi nal sonographic images were medically necessary to better assess the following anatomy: Date of LMP: 01/03/2022 EXAM MEASUREMENTS: Uterus: 11.0 x 5.0 x 6.4 cm Endometrial Stripe: 0.6 cm Right Ovary: 3.6 x 1.6 x 2.0 cm Left Ovary: 3.0 x 1.5 x 2.4 cm 1. Uterus: anteverted, heterogeneous, 2.7 x 2.1 x 2.3cm fibroid 2. Endometrium: fluid within endo 3. Right Ovary: wnl 4. Left Ovary: wnl 5. Bilateral Adnexa: wnl 6. Posterior cul-de-sac: wnl Heterogeneous anteverted uterus with some fluid in the endometrial canal. There is isoechoic 2.7 cm f undal intramural fibroid redemonstrated. No free fluid in the pelvis. Both ovaries seen and symmetric and normal in size. No suspicious ovarian or adnexal masses noted. IMPRESSION: Interval resolution of left ovarian nonsimple cyst. No new suspicious adnexal masses bila terally.
== END | disposition home or self-care (01) ==
LOC: RADUSWWP 16:02
PROVIDERS: ATTEND Family Medicine
DX: N83.202 Unspecified ovarian cyst, left side (principal)
CPT/HCPCS: 76830; 76856

== ENCOUNTER → 2022-03-30 | Outpatient (CLI) | payer BC ==
[2022-03-30 09:46] VITALS: BP 115/75; PULSE 55; RESP 16; TEMP 98.6
--- NOTE | 2022-03-30 10:08 | P.PN ---
Subjective Progress Note Date: 03/30/22 Principal diagnosis: right breast DCIS right breast DCIS DCIS right breast Verena is a 41-year-old white female who was seen in consultation for Dr. Rosenda Reyes on . The patient had [place] first [place] [id number] which revealed some calcifications of concern in the right breast, a diagnostic mammogram was performed and stereotactic core biopsy was recommended. The location of the calcifications were in the anterior central portion of the breast. Pathology revealed ductal carcinoma in situ. The patient tolerated the procedure without difficulty. She underwent a right breast lumpectomy on . This revealed an isolated focus of atypical ductal hyperplasia with calcifications in a background of fibrocystic change and previous biopsy site. No residual DCIS was identified. Margins were negative for atypical ductal hyperplasia. She has not noted any lumps masses or nodules for which she is concerned. She did not have any radiation therapy. Her last bilateral mammogram was March 19. This was personally reviewed. THis was BIRAD 2. She is not complaining of any lumps masses or nodules in her breast. She is continuing to take the tamoxifen. She is continuing to have some hot flashes. She is having some irregularity of her menstrual cycle. Her periods are about 50 days apart. Her last period was 02-27-22. She did have genetic testing performed which was negative. Family history: Paternal aunt: Ovarian cancer Hormonal history: Menarche: 8 , press-fit: Yes, age of first 25 Period is irregular control pills:9 years than IUD and then a tubal ligation Hormones: Negative Surgical history: 1. Tubal ligation 2. D&C 3. right breast lumpectomy Medical History: none Social history: Smoke: Negative Alcohol: Negative Drugs: Negative Review of systems: HEENT: Negative Lungs: Negative GI: Negative Cardiac: Negative : Negative Menstrual periods normal Musculoskeletal: Negative Integument: Negative Neurologic: Negative Psychiatric: Negative Endocrine: Negative Hematologic: Negative ALLERGY: Seasonal ALLERGIES Objective - Vital Signs Vital signs: Vital Signs Temp 98.6 F 03/30/22 09:41 Pulse 55 L 03/30/22 09:41 Resp 16 03/30/22 09:41 BP 115/75 03/30/22 09:41 Pulse Ox 93 L 03/30/22 09:41 FiO2 Intake & Output 03/29/22 03/30/22 03/30/22 18:59 06:59 18:59 Weight 58.967 kg - Exam BMI: 23 - Constitutional General appearance: Present: cooperative - EENT Eyes: Present: EOMI ENT: Present: hearing grossly normal - Neck Neck: Present: normal ROM - Respiratory Respiratory: bilateral: CTA - Cardiovascular Rhythm: regular Heart sounds: normal: S1, S2 - Integumentary Integumentary: Present: normal turgor - Musculoskeletal Musculoskeletal: Present: gait normal - Psychiatric Psychiatric: Present: A&O x's 3, appropriate affect, intact judgment & insight - Additional findings Additional findings: Breast Exam: BRA: 34B inspection: Bilateral grade 2 ptosis, well-healed scar right breast from prior surgery Palpation: Weight breasts: Multiple positional exam fibrocystic changes no dominant masses or nodules of concern Right axilla: No adenopathy of concern Left breast: Multi-positional exam fibrocystic changes no dominant masses or nodules of concern Left axilla: No adenopathy of concern Assessment and Plan Assessment: Pressure: Right breast DCIS no evidence of recurrence Recent bilateral mammogram [id number] benign BIRADS 2 Plan: Continue tamoxifen Follow-up in 6 months Follow up sooner any questions or concerns Bilateral mammogram 1 year Cc: Dr. Reyes
== END ==
LOC: WWCWWP 09:32
PROVIDERS: ATTEND Surgery
DX: Z08 Encounter for follow-up examination after completed treatment for malignant neoplasm (principal); Z85.3 Personal history of malignant neoplasm of breast

== ENCOUNTER → 2023-05-06 | Outpatient (CLI) | payer BC ==
--- NOTE | 2023-05-06 09:13 | MM ---
Reason for Exam: Screening (asymptomatic). Last mammogram was performed 1 year(s) and 2 month(s) ago. Patient History: Menarche at age 8. First Full-Term at age 25. Perimenopausal. Breast cancer, age 39. Hormonal Contraceptives for 9 years from age 16 until age 25. 05/31/2020, Lumpectomy on the Right side. 05/31/2020, High risk Core Biopsy on the right side. 04/07/2020, Malignant Core Biopsy on the right side. Paternal aunt had ovarian cancer, age 60. Prior Study Comparison: 12/09/2020 Right Diagnostic Mammogram, [facility]. 03/17/2021 Bilateral Diagnostic Mammogram, [facility]. 03/19/2022 Bilateral MG 3D diag mammo w/cad BRENT, [facility]. Tissue Density: The breast tissue is heterogeneously dense. This may lower the sensitivity of mammography. Findings: Analyzed By CAD. There is no suspicious group of microcalcifications or new suspicious mass in either breast. Postsurgical changes to the right breast. Overall Assessment: Benign, BI-RAD 2 Management: Screening Mammogram of both breasts in 1 year. A clinical breast exam by your physician is recommended on an annual basis and results should be correlated with mammographic findings. Electronically signed and approved by: Swapnil Hebert D.O.
== END | disposition home or self-care (01) ==
LOC: RADMAMWWP 08:45
PROVIDERS: ATTEND Surgery
DX: Z12.31 Encounter for screening mammogram for malignant neoplasm of breast (principal); Z85.3 Personal history of malignant neoplasm of breast; Z80.41 Family history of malignant neoplasm of ovary
CPT/HCPCS: 77063; 77067

== ENCOUNTER → 2023-05-10 | Outpatient (CLI) | payer BC ==
--- NOTE | 2023-05-10 15:54 | P.PN ---
Subjective Progress Note Date: 05/10/23 Principal diagnosis: right breast DCIS right breast DCIS Verena is a 42-year-old white female who was [place] [id number]. The patient [place] [id number] which revealed some calcifications of concern in the right breast, a diagnostic mammogram was performed and stereotactic core biopsy was recommended. The location of the calcifications were in the anterior central portion of the breast. Pathology revealed ductal carcinoma in situ. The patient tolerated the procedure without difficulty. She underwent a right breast lumpectomy on . This revealed an isolated focus of atypical ductal hyperplasia with calcifications in a background of fibrocystic change and previous biopsy site. No residual DCIS was identified. Margins were negative for atypical ductal hyperplasia. She has not noted any lumps masses or nodules for which she is concerned. She did not have any radiation therapy. Her last bilateral mammogram was 05-06-23., BIRAD 2. She is not complaining of any lumps masses or nodules in her breast. She is continuing to take the tamoxifen. She is continuing to have some hot flashes. She is having some irregularity of her menstrual cycle. Her last period was in February they are about every 48 days. She did have genetic testing performed which was negative. mammogram personally reviewed Family history: Paternal aunt: Ovarian cancer Hormonal history: Menarche: 8 , press-fit: Yes, age of first 25 Period is irregular control pills:9 years than IUD and then a tubal ligation Hormones: Negative Surgical history: 1. Tubal ligation 2. D&C 3. right breast lumpectomy Medical History: none Social history: Smoke: Negative Alcohol: Negative Drugs: Negative Review of systems: HEENT: Negative Lungs: Negative GI: Negative Cardiac: Negative : Negative Menstrual periods normal Musculoskeletal: Negative Integument: Negative Neurologic: Negative Psychiatric: Negative Endocrine: Negative Hematologic: Negative ALLERGY: Seasonal ALLERGIES Objective - Constitutional General appearance: Present: cooperative - EENT Eyes: Present: EOMI ENT: Present: hearing grossly normal - Neck Neck: Present: normal ROM - Respiratory Respiratory: bilateral: CTA - Cardiovascular Rhythm: regular Heart sounds: normal: S1, S2 - Gastrointestinal General gastrointestinal: Present: soft - Integumentary Integumentary: Present: normal turgor - Musculoskeletal Musculoskeletal: Present: gait normal - Psychiatric Psychiatric: Present: A&O x's 3, appropriate affect, intact judgment & insight - Additional findings Additional findings: Additional findings: Breast Exam: BRA: 34B inspection: Bilateral grade 2 ptosis, well-healed scar right breast from prior surgery Palpation: Weight breasts: Multiple positional exam fibrocystic changes no dominant masses or nodules of concern Right axilla: No adenopathy of concern Left breast: Multi-positional exam fibrocystic changes no dominant masses or nodules of concern Left axilla: No adenopathy of concern Assessment and Plan Assessment: Impression: Right breast DCIS no evidence of recurrence Recent bilateral mammogram 05-06-23 benign BIRADS 2 Plan: Continue tamoxifen Follow-up in 6 months Follow up sooner any questions or concerns Bilateral mammogram 1 year Cc: Dr. Reyes
[2023-05-10 16:01] VITALS: BP 137/84; PULSE 101; RESP 18; TEMP 98.3
== END ==
LOC: WWCWWP 15:39
PROVIDERS: ATTEND Surgery
DX: N60.11 Diffuse cystic mastopathy of right breast (principal); Z85.3 Personal history of malignant neoplasm of breast

== ENCOUNTER → 2023-11-14 | Outpatient (CLI) | payer BC ==
--- NOTE | 2023-11-14 15:13 | P.PN ---
Subjective Progress Note Date: 11/14/23 05/10/23 Principal diagnosis: right breast DCIS Verena is a 42-year-old white female who was [place] [id number]. The patient [place] [id number] which revealed some calcifications of concern in the right breast, a diagnostic mammogram was performed and stereotactic core biopsy was recommended. The location of the calcifications were in the anterior central portion of the breast. Pathology revealed ductal carcinoma in situ. The patient tolerated the procedure without difficulty. She underwent a right breast lumpectomy on . This revealed an isolated focus of atypical ductal hyperplasia with calcifications in a background of fibrocystic change and previous biopsy site. No residual DCIS was identified. Margins were negative for atypical ductal hyperplasia. She has not noted any lumps masses or nodules for which she is concerned. She did not have any radiation therapy. Her last bilateral mammogram was 05-06-23., BIRAD 2. She is not complaining of any lumps masses or nodules in her breast. She is continuing to take the tamoxifen. She is continuing to have some hot flashes. She is having some irregularity of her menstrual cycle. Her last period was in February they are about every 48 days. She did have genetic testing performed which was negative. mammogram personally reviewed 11-14-23 Verena comes for a 6 months follow up regarding a right breast DCIS diagnosed in 2019. She underwent a right breast lumpectomy on . This revealed an isolated focus of atypical ductal hyperplasia with calcifications in a background of fibrocystic change and previous biopsy site. No residual DCIS was identified. Margins were negative for atypical ductal hyperplasia. Bilateral mammogram 05-06-23 BIRAD 2. She is continuing on tamoxifen. She is tolerating it well. Family history: Paternal aunt: Ovarian cancer Hormonal history: Menarche: 8 , press-fit: Yes, age of first 25 Period is irregular control pills:9 years than IUD and then a tubal ligation Hormones: Negative Surgical history: 1. Tubal ligation 2. D&C 3. right breast lumpectomy Medical History: none Social history: Smoke: Negative Alcohol: Negative Drugs: Negative Review of systems: HEENT: Negative Lungs: Negative GI: Negative Cardiac: Negative : Negative Menstrual periods normal Musculoskeletal: Negative Integument: Negative Neurologic: Negative Psychiatric: Negative Endocrine: Negative Hematologic: Negative ALLERGY: Seasonal ALLERGIES Objective - Constitutional General appearance: Present: cooperative - EENT Eyes: Present: EOMI ENT: Present: hearing grossly normal - Neck Neck: Present: normal ROM - Respiratory Respiratory: bilateral: CTA - Cardiovascular Heart sounds: normal: S1, S2 - Gastrointestinal General gastrointestinal: Present: soft - Integumentary Integumentary: Present: normal turgor - Musculoskeletal Musculoskeletal: Present: gait normal - Psychiatric Psychiatric: Present: A&O x's 3, appropriate affect, intact judgment & insight - Additional findings Additional findings: Breast Exam: BRA: 34B inspection: Bilateral grade 2 ptosis, well-healed scar right breast from prior surgery Palpation: right breasts: Multiple positional exam fibrocystic changes no dominant masses or nodules of concern Right axilla: No adenopathy of concern Left breast: Multi-positional exam fibrocystic changes no dominant masses or nodules of concern Left axilla: No adenopathy of concern Assessment and Plan Assessment: Impression: Right breast DCIS no evidence of recurrence Recent bilateral mammogram 05-06-23 benign BIRADS 2 Plan: Continue tamoxifen Follow-up in 6 months, with bilateral mammogram Follow up sooner any questions or concerns Cc: Dr. Reyes
[2023-11-15 07:41] VITALS: BP 128/83; PULSE 96; RESP 17; TEMP 98.3
== END ==
LOC: WWCWWP 14:58
PROVIDERS: ATTEND Surgery
DX: N60.11 Diffuse cystic mastopathy of right breast (principal)

== ENCOUNTER 2023-12-24 09:59 | Day surgery (SDC) | payer BC ==
[2023-12-24] MEDS: LACTATED RINGERS 1,000 ML IV ONE (10:38)
[2023-12-24 10:48] VITALS: RESP 16; TEMP 97.7
[2023-12-24] MEDS ORDERED: PROPOFOL 10 MG/ML 20 ML VIAL IV ONE (11:20)
--- NOTE | 2023-12-24 11:39 | P.PCN ---
Date of Procedure: 12/24/23 Procedure(s) Performed: BRIEF HISTORY: Patient is a 43-year-old pleasant white female scheduled for an elective colonoscopy as a part of screening for colon cancer. PROCEDURE PERFORMED: Colonoscopy. PREOPERATIVE DIAGNOSIS: Screening for colon cancer. IV sedation per Anesthesia. PROCEDURE: After informed consent was obtained, the patient, was brought into the endoscopy unit. IV sedation was administered by Anesthesia under continuous monitoring. Digital rectal examination was normal. Initially the Olympus CF-160 flexible video colonoscope was then inserted in the rectum, gradually advanced into the cecum without any difficulty. Careful examination was performed as the scope was gradually being withdrawn. Ileocecal valve and the appendiceal orifice were visualized and appeared normal. Prep was excellent. Mucosa of the cecum, ascending colon, transverse colon, descending colon, sigmoid colon, and rectum appeared normal. Retroflexion was performed in the rectum and no lesions were seen. The patient tolerated the procedure well. IMPRESSION: Normal-appearing colon from rectum to cecum with no evidence of colorectal neoplasia. RECOMMENDATIONS: Findings of this examination were discussed with the patient as well as her family. She was advised to have repeat screening colonoscopy in 10 years..
[2023-12-24 12:44] VITALS: BP 122/69; PULSE 76
== END 2023-12-24 12:20 | disposition home or self-care (01) ==
LOC: ORWHC2ENDO 09:59
PROVIDERS: ATTEND Internal Medicine Gastroenterology
DX: Z12.11 Encounter for screening for malignant neoplasm of colon (principal); Z87.891 Personal history of nicotine dependence; Z85.3 Personal history of malignant neoplasm of breast
CPT/HCPCS: 81025; 45378; J2704

== ENCOUNTER → 2024-05-08 | Outpatient (CLI) | payer BC ==
--- NOTE | 2024-05-08 13:44 | MM ---
Reason for Exam: Additional evaluation requested from prior study. Last screening mammogram was performed 12 month(s) ago. Patient History: Menarche at age 8. First Full-Term at age 25. Perimenopausal. Breast cancer, age 39. Hormonal Contraceptives for 9 years from age 16 until age 25. 05/31/2020, Lumpectomy on the Right side. 05/31/2020, High risk Core Biopsy on the right side. 04/07/2020, Malignant Core Biopsy on the right side. Paternal aunt had ovarian cancer, age 60. Prior Study Comparison: 03/17/2021 Bilateral Diagnostic Mammogram, [facility]. 03/19/2022 Bilateral MG 3D diag mammo w/cad BRENT, [facility]. 05/06/2023 Bilateral MG 3D screening mammo w/cad, [facility]. Tissue Density: The breasts are heterogeneously dense, which may obscure small masses. Findings: Analyzed By CAD. No masses or or distortion seen. Multiple clips right breast. No suspicious microcalcifications. Overall Assessment: Benign, BI-RAD 2 Management: Diagnostic Mammogram of both breasts in 1 year. . Results were given to the patient verbally at the time of exam. Patient should continue monthly self-breast exams. A clinical breast exam by your physician is recommended on an annual basis. This exam should not preclude additional follow-up of suspicious palpable abnormalities. Note on Zeinab scores and lifetime risk: 1. A Zeinab score greater than 3% is considered moderate risk. If this is the case, consider specialist referral to assess eligibility for a risk reducing agent. 2. If overall lifetime risk for the development of breast cancer is 20% or higher, the patient may qualify for future screening with alternating mammogram and breast MRI. [facility], , 05/08/2024 1:41 PM. Electronically signed and approved by: Bradford Crocker M.D. Radiologis
== END | disposition home or self-care (01) ==
LOC: RADMAMWWP 12:53
PROVIDERS: ATTEND Surgery
CPT/HCPCS: 77062; 77066

== ENCOUNTER → 2024-11-05 | Outpatient (CLI) | payer BC ==
[2024-11-05 08:48] VITALS: BP 125/84; PULSE 84; RESP 16; TEMP 97.9
--- NOTE | 2024-11-05 09:41 | P.PN ---
Subjective Progress Note Date: 11/05/24 Principal diagnosis: right breast DCIS 201911/05/24 05/10/23 Principal diagnosis: right breast DCIS Verena is a 42-year-old white female who [place] [id number]. The patient [place] [id number] which revealed some calcifications of concern in the right breast, a diagnostic mammogram was performed and stereotactic core biopsy was recommended. The location of the calcifications were in the anterior central portion of the breast. Pathology revealed ductal carcinoma in situ. The patient tolerated the procedure without difficulty. She underwent a right breast lumpectomy on . This revealed an isolated focus of atypical ductal hyperplasia with calcifications in a background of fibrocystic change and previous biopsy site. No residual DCIS was identified. Margins were negative for atypical ductal hyperplasia. She has not noted any lumps masses or nodules for which she is concerned. She did not have any radiation therapy. Her last bilateral mammogram was 05-06-23., BIRAD 2. She is not complaining of any lumps masses or nodules in her breast. She is continuing to take the tamoxifen. She is continuing to have some hot flashes. She is having some irregularity of her menstrual cycle. Her last period was in February they are about every 48 days. She did have genetic testing performed which was negative. mammogram personally reviewed 11-14-23 Verena comes for a 6 months follow up regarding a right breast DCIS diagnosed in 2019. She underwent a right breast lumpectomy on . This revealed an isolated focus of atypical ductal hyperplasia with calcifications in a background of fibrocystic change and previous biopsy site. No residual DCIS was identified. Margins were negative for atypical ductal hyperplasia. Bilateral mammogram 05-06-23 BIRAD 2. She is continuing on tamoxifen. She is tolerating it well. 11-05-24 Verena comes for a 6 months follow up regarding a right breast DCIS diagnosed in 2019. She underwent a right breast lumpectomy on . This revealed an isolated focus of atypical ductal hyperplasia with calcifications in a background of fibrocystic change and previous biopsy site. No residual DCIS was identified. Margins were negative for atypical ductal hyperplasia. Bilateral mammogram 05-08-24 BIRAD 2. She is continuing on tamoxifen. She is tolerating it well., see's Dr. manzo November 24 consider when can stop Tamoxifen She has a PAP smear yearly with Dr. Reyes genetic testing (-) Family history: Paternal aunt: Ovarian cancer Hormonal history: Menarche: 8 , press-fit: Yes, age of first 25 Period is irregular control pills:9 years than IUD and then a tubal ligation Hormones: Negative Surgical history: 1. Tubal ligation 2. D&C 3. right breast lumpectomy Medical History: none Social history: Smoke: Negative Alcohol: Negative Drugs: Negative Review of systems: HEENT: Negative Lungs: Negative GI: Negative Cardiac: Negative : Negative Menstrual periods normal Musculoskeletal: Negative Integument: Negative Neurologic: Negative Psychiatric: Negative Endocrine: Negative Hematologic: Negative ALLERGY: Seasonal ALLERGIES Objective - Vital Signs Vital signs: Vital Signs Temp 97.9 F 11/05/24 08:46 Pulse 84 11/05/24 08:46 Resp 16 11/05/24 08:46 BP 125/84 11/05/24 08:46 Pulse Ox 97 11/05/24 08:46 FiO2 Intake & Output 11/04/24 11/05/24 11/05/24 18:59 06:59 18:59 Weight 65.771 kg - Constitutional General appearance: Present: cooperative - EENT Eyes: Present: EOMI ENT: Present: hearing grossly normal - Neck Neck: Present: normal ROM - Respiratory Respiratory: bilateral: CTA - Cardiovascular Rhythm: regular - Integumentary Integumentary: Present: normal turgor - Musculoskeletal Musculoskeletal: Present: gait normal - Psychiatric Psychiatric: Present: A&O x's 3, appropriate affect, intact judgment & insight - Additional findings Additional findings: Breast Exam: BRA: 34B inspection: Bilateral grade 2 ptosis, well-healed scar right breast from prior surgery Palpation: right breasts: Multiple positional exam fibrocystic changes no dominant masses or nodules of concern Right axilla: No adenopathy of concern Left breast: Multi-positional exam fibrocystic changes no dominant masses or nodules of concern Left axilla: No adenopathy of concern Assessment and Plan Assessment: Impression: Right breast DCIS no evidence of recurrence 2019 Recent bilateral mammogram 05-08-24 benign BIRADS 2 Plan: Continue tamoxifen Follow-up in 6 months bilateral mammogram 1 year; April 2025 with appointment Follow up sooner any questions or concerns Cc: Dr. Reyes
== END ==
LOC: WWCWWP 08:37
PROVIDERS: ATTEND Surgery
DX: Z12.31 Encounter for screening mammogram for malignant neoplasm of breast (principal); N60.11 Diffuse cystic mastopathy of right breast; D05.11 Intraductal carcinoma in situ of right breast